=== PATIENT | female | born 1960 | race Caucasian/White ===

== ENCOUNTER → 2018-06-04 | Outpatient (CLI) | payer OTHER ==
--- NOTE | 2018-06-04 10:43 | Diagnostic Imaging Report ---
EXAMINATION: CHEST 2 VIEWS INDICATION: Acute bronchitis. COMPARISON: None FINDINGS: TUBES and LINES: None. LUNGS: Lungs are well inflated. There is mild bronchial wall thickening. There is no evidence of pneumonia or pulmonary edema. PLEURA: No pleural effusion or pneumothorax. HEART AND MEDIASTINUM: The cardiomediastinal silhouette is unremarkable. There are atherosclerotic calcifications within the aorta. BONES AND SOFT TISSUES: No acute osseous abnormality. UPPER ABDOMEN: No free air under the diaphragm. IMPRESSION: Mild bronchial wall thickening, consistent with clinical history of acute bronchitis. No evidence of pneumonia. Signed by: Dr. Rhona Ovalles MD on 06/04/2018 10:40 AM
== END ==
LOC: RAD 10:15
PROVIDERS: ATTEND Internal Medicine
DX: J20.9 Acute bronchitis, unspecified (principal)
CPT/HCPCS: 71046

== ENCOUNTER → 2020-05-08 | Outpatient (CLI) | payer OTHER | LOC: RESP 16:07 | PROVIDERS: ATTEND Internal Medicine | DX: J45.40 Moderate persistent asthma, uncomplicated (principal) | CPT/HCPCS: 94060; 94664; 94727; 94729 ==

== ENCOUNTER → 2020-05-19 | Outpatient (CLI) | payer OTHER | LOC: CT 09:44 | PROVIDERS: ATTEND Internal Medicine | DX: R06.09 Other forms of dyspnea (principal) | CPT/HCPCS: 71250 ==

== ENCOUNTER → 2020-10-06 | Outpatient (CLI) | payer OTHER | LOC: RAD 11:35 | PROVIDERS: ATTEND Internal Medicine | DX: M54.5 Low back pain (principal); M51.36 Other intervertebral disc degeneration, lumbar region | CPT/HCPCS: 72100 ==

== ENCOUNTER 2021-09-26 14:46 | Emergency (ER) | payer OTHER ==
[~2021-09-26] VITALS: Ht 162.6 cm; Wt 68.9 kg
[2021-09-26] MEDS ORDERED: IBUPROFEN 600 MG TAB PO STA (15:07)
[2021-09-26] MEDS ORDERED: METHOCARBAMOL 500 MG TAB PO ONE (15:15)
[2021-09-26] MEDS ORDERED: MOTRIN800 MG PO (16:24)
[2021-09-26] MEDS ORDERED: METHOCARBAMOL750 MG PO (16:24)
== END 2021-09-26 18:05 | disposition home or self-care (01) ==
LOC: ER 14:50
DX: M54.2 Cervicalgia (principal); M54.6 Pain in thoracic spine; V43.52XA Car driver injured in collision with other type car in traffic accident, initial encounter; Y92.488 Other paved roadways as the place of occurrence of the external cause; I10 Essential (primary) hypertension; E78.5 Hyperlipidemia, unspecified
CPT/HCPCS: 72050; 72072; 72125; 99283

== ENCOUNTER → 2024-07-29 | Outpatient (REF) | payer OTHER ==
[~2024-07-29] MED LIST: METHOCARBAMOL750 MG PO; MOTRIN800 MG PO
== END ==
LOC: RESP 09:50 → EDSTATUS 10:00
PROVIDERS: ATTEND Internal Medicine Critical Care Medicine
DX: J42 Unspecified chronic bronchitis (principal); J43.9 Emphysema, unspecified
CPT/HCPCS: 94010; 94727; 94729